=== PATIENT | male | born 1980 | race Caucasian/White ===

== ENCOUNTER 2016-11-11 21:34 | Observation (INO) | payer OTHER ==
[~2016-11-11] VITALS: Ht 177.8 cm; Wt 104.3 kg
[~2016-11-11 21:34] MED LIST: NOHOMEMEDS
[2016-11-11 22:04] LABS: POINT-OF-CARE METER ID UU13113778
[2016-11-11 23:12] LABS: HEMATOCRIT 43.4 % (38.0-50.0); MCH 30.5 PG (29.0-34.0); MCHC 35.3 G/DL (30.0-36.0); MCV 86.5 FL (86-99); MEAN PLAT.VOLUME 9.8 uM^3 (9.0-12.4); PLATELET COUNT 208 K/uL (156-360); RBC DIS.WIDTH-CV 12.9 % (11.8-14.6); RBC DIS.WIDTH-SD 40.2 % (39-53); RED BLOOD COUNT 5.02 M/uL (4.00-5.50); WHITE BLOOD COUNT 15.2 K/uL (4.1-10.2)
[2016-11-11 23:21] LABS: ADD MIUA? YES; BILIRUBIN NEGATIVE; BLOOD SMALL; COLOR YELLOW ((YELLOW)); GLUCOSE (STRIP) NEGATIVE; KETONES 80; LEUKOCYTES NEGATIVE; NITRITE NEGATIVE; PROTEIN (STRIP) 30; SPECIFIC GRAVITY 1.019 (1.000-1.030); UROBILINOGEN 0.2 MG/DL (0.2-1.0)
[2016-11-11 23:23] LABS: CHLORIDE 101 mEq/L (99-109); POTASSIUM 3.7 mEq/L (3.7-5.4); SODIUM 136 mEq/L (136-147)
[2016-11-11 23:24] LABS: GLUCOSE 78 mg/dL (70-99)
[2016-11-11 23:24] LABS: BACTERIA NONE SEEN /HPF; EPITHELIAL CELLS NONE SEEN /HPF; MUCUS TRACE /LPF; RED BLOOD CELLS 0-5 /HPF (0-5); WHITE BLOOD CELLS 0-5 /HPF (0-5)
[2016-11-11 23:26] LABS: ANION GAP 14 MEQ/L (2-14)
[2016-11-11 23:28] LABS: GFR ESTIMATE (CALCULATED) > 59 mL/min/
[2016-11-11 23:29] LABS: UREA NITROGEN (BUN) 16 mg/dL (9-23)
[2016-11-11 23:30] LABS: COCAINE NEGATIVE (150 ng/mL); METHAMPHETAMINE NEGATIVE (500 ng/mL); OPIATES (MORPHINE) NEGATIVE (100 ng/mL); PHENCYCLIDINE NEGATIVE (25 ng/mL); THC CANNABINOIDS PRESUMPTIVE POSITIVE (50 ng/mL)
[2016-11-11 23:31] LABS: ADD MEDTOX COMMENT Y; AMPHETAMINE NEGATIVE (500 ng/mL); BARBITURATES NEGATIVE (200 ng/mL); BENZODIAZEPINES NEGATIVE (150 ng/mL); INTERNAL CONTROLS VALID? YES; METHADONE NEGATIVE (200 ng/mL); OXYCODONE NEGATIVE (100 ng/mL); PROPOXYPHENE NEGATIVE (300 ng/mL); TRICYCLIC ANTIDEPRESSANTS NEGATIVE (300 ng/mL)
[2016-11-11 23:34] LABS: CREATINE KINASE 3470 IU/L (1-294)
[2016-11-11] MEDS ORDERED: ALEVE220 MG PO (23:52)
[2016-11-12] VITALS: BP 143/78
== END 2016-11-12 01:15 | disposition left against medical advice (07) ==
LOC: EME 21:34 → EDOF 11-12 00:34 → ENRESERV 11-12 00:37 → EDOF 11-12 00:42 → ENRESERV 11-12 00:45 → EDOF 11-12 01:15
PROVIDERS: Physician Assistant
DX: M62.82 Rhabdomyolysis (principal); E86.0 Dehydration; F17.200 Nicotine dependence, unspecified, uncomplicated; Z87.442 Personal history of urinary calculi; Q37.9 Unspecified cleft palate with unilateral cleft lip
CPT/HCPCS: 80048; 81003; 82550; 82948; 84999; 85027; 94640; 99281; 99284; G0378; J2930; J3010; J3360; J7030

== ENCOUNTER 2016-12-24 14:07 | Emergency (ER) | payer OTHER ==
[~2016-12-24] VITALS: Ht 177.8 cm; Wt 105.5 kg
[~2016-12-24 14:07] MED LIST changes: +ALEVE220 MG PO
[2016-12-24 16:28] VITALS: BP 120/69
== END 2016-12-24 16:29 | disposition home or self-care (01) ==
LOC: EME 14:07
PROC: 0HQFXZZ Repair Right Hand Skin, External Approach (ICD-10-PCS; principal; 2016-12-24)
DX: S61.212A Laceration without foreign body of right middle finger without damage to nail, initial encounter (principal); W26.0XXA Contact with knife, initial encounter; Y92.009 Unspecified place in unspecified non-institutional (private) residence as the place of occurrence of the external cause; F17.200 Nicotine dependence, unspecified, uncomplicated
CPT/HCPCS: 99281; 99283; S0020